=== PATIENT | female | born 1955 | race Caucasian/White ===

== ENCOUNTER → 2021-08-04 | Outpatient (CLI) | payer OTHER ==
[2021-08-04 12:11] LABS: HEMATOCRIT 44.8 % (37.0-47.0); HEMOGLOBIN 15.3 gm/dL (12.0-15.0); MCH 33.4 pg (26.0-34.0); MCHC 34.1 g/dL (28.0-37.0); MCV 97.8 fL (80.0-100.0); RBC 4.59 mil/uL (4.20-5.00); RDW 13.4 % (10.5-14.5); WBC 9.7 thou/uL (4.0-11.0)
[2021-08-04 12:22] LABS: POTASSIUM 3.6 mmol/L (3.5-5.1)
--- NOTE | 2021-08-04 15:48 | EKG ---
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: [facility]UN[facility] : 1955 Requested By: Rosa Elena Lemus Order Number: [id number] MD: Brian Pedroza Measurements Intervals [place] Rate: 94 P: 72 AL: 204 QRS: 68 QRSD: 84 T: 32 QT: 340 QTc: 426 Interpretive Statements Sinus rhythm Low voltage, precordial leads Borderline T abnormalities, anterior leads No previous ECG available for comparison Electronically Signed On 08-04-2021 15:48:14 CDT by Brian Pedroza [email or web address] <ELECTRONICALLY SIGNED> By: Brian Pedroza MD, [facility] 08/04/21 1548 [id number] Brian Pedroza MD, FACC /EPI
== END ==
LOC: RAD 10:46
PROVIDERS: ATTEND Podiatrist Foot & Ankle Surgery
DX: Z01.812 Encounter for preprocedural laboratory examination (principal)